=== PATIENT | male | born 1990 | race Caucasian/White ===

== ENCOUNTER 2018-08-14 20:20 | Inpatient (IN) | payer OTHER ==
[2018-08-14 21:45] LABS: ADD MAN DIFF? NO
[2018-08-14] MEDS: NYSTATIN SUSP 5 ML CUP PO (21:46)
[2018-08-14 21:50] LABS: WHITE BLOOD COUNT 7.3 10^3/ul (4.8-10.8)
[2018-08-14 21:50] LABS: BASOPHIL # 0.1 10^3/ul (0.0-0.1); BASOPHILS % 1.1 % (0.0-2.0); EOSINOPHILS # 0.1 10^3/ul (0.0-0.5); HEMATOCRIT 44.6 % (42.0-52.0); LYMPHOCYTES # 1.9 10^3/ul (0.8-2.9); LYMPHOCYTES % 26.2 % (15.0-51.0); MEAN CORPUSCULAR HEMOGLOBIN 30.6 pg (29.0-33.0); MEAN CORPUSCULAR HGB CONC 33.6 g/dl (32.0-37.0); MEAN PLATELET VOLUME 10.3 fl (7.4-10.4); MONOCYTE # 0.4 10^3/ul (0.3-0.9); NEUTROPHIL # 4.8 10^3/ul (1.6-7.5); NEUTROPHILS % 65.3 % (39.0-77.0); PLATELET COUNT 202 10^3/UL (140-415); RED CELL DISTRIBUTION WIDTH 13.1 % (11.5-14.5)
[2018-08-14 22:07] LABS: ALANINE AMINOTRANSFERASE 60 IU/L (13-69); ALBUMIN 3.6 g/dl (3.3-4.9); ALBUMIN/GLOBULIN RATIO 0.97; ALKALINE PHOSPHATASE 102 IU/L (42-121); ANION GAP 4 (5-13); ASPARTATE AMINO TRANSFERASE 43 IU/L (15-46); BILIRUBIN,INDIRECT 0.6 mg/dl (0-1.1); BILIRUBIN,TOTAL 0.6 mg/dl (0.2-1.3); BLOOD UREA NITROGEN 12 mg/dl (7-20); CALCIUM 9.8 mg/dl (8.4-10.2); CARBON DIOXIDE 38 mmol/L (21-31); CHLORIDE 100 mmol/L (97-110); CREATININE 0.74 mg/dl (0.61-1.24); GLUCOSE 83 mg/dl (70-220); LIPASE 49 U/L (23-300); POTASSIUM 4.3 mmol/L (3.5-5.1); SODIUM 142 mmol/L (135-144); TOTAL PROTEIN 7.3 g/dl (6.1-8.1)
[2018-08-14] MEDS: SOD CHLORIDE 0.9% 1,000 ML IV ×2 (22:20→23:49)
[2018-08-14] MEDS: LORAZEPAM 2 MG INJ IV (22:21)
[2018-08-14] MEDS: HEPARIN SODIUM 5,000 UNIT/ML VIAL SC (22:30)
[2018-08-14] MEDS ORDERED: NACL 0.9% 3 ML SYG IV (22:30)
[2018-08-14] MEDS ORDERED: ACETAMINOPHEN 650 MG SUPP PR (22:30)
[2018-08-14] MEDS ORDERED: ONDANSETRON 4 MG INJ IV (22:30)
[2018-08-14] MEDS ORDERED: LORAZEPAM 2 MG INJ IV (22:30)
[2018-08-15 00:53] LABS: INR 1.04; PROTIME 13.7 Sec (11.9-14.9); PT RATIO 1.1
[2018-08-15 00:54] LABS: PARTIAL THROMBOPLASTIN TIME 33.5 Sec (23.0-35.0)
[2018-08-15] MEDS: HALOPERIDOL 5 MG INJ IM (01:00)
[2018-08-15] MEDS ORDERED: HEPARIN 5,000 UNIT/0.5 ML VIAL ×3 (04:57→20:51)
[2018-08-15] MEDS: HEPARIN SODIUM 5,000 UNIT/ML VIAL SC ×3 (05:21→21:49)
[2018-08-15 06:45] LABS: ADD MAN DIFF? NO
[2018-08-15 06:52] LABS: WHITE BLOOD COUNT 6.6 10^3/ul (4.8-10.8)
[2018-08-15 06:52] LABS: BASOPHIL # 0.1 10^3/ul (0.0-0.1); BASOPHILS % 0.9 % (0.0-2.0); EOSINOPHILS # 0.1 10^3/ul (0.0-0.5); EOSINOPHILS % 1.7 % (0.0-7.0); HEMATOCRIT 42.3 % (42.0-52.0); HEMOGLOBIN 13.8 g/dl (14.0-18.0); LYMPHOCYTES # 1.9 10^3/ul (0.8-2.9); LYMPHOCYTES % 29.1 % (15.0-51.0); MEAN CORPUSCULAR HEMOGLOBIN 30.3 pg (29.0-33.0); MEAN CORPUSCULAR HGB CONC 32.6 g/dl (32.0-37.0); MEAN PLATELET VOLUME 10.8 fl (7.4-10.4); MONOCYTE # 0.4 10^3/ul (0.3-0.9); MONOCYTES % 5.9 % (0.0-11.0); NEUTROPHIL # 4.1 10^3/ul (1.6-7.5); NEUTROPHILS % 62.1 % (39.0-77.0); PLATELET COUNT 191 10^3/UL (140-415); RED BLOOD COUNT 4.55 10^6/ul (4.70-6.10); RED CELL DISTRIBUTION WIDTH 13.2 % (11.5-14.5)
[2018-08-15 07:29] LABS: ALANINE AMINOTRANSFERASE 53 IU/L (13-69); ALBUMIN/GLOBULIN RATIO 0.96; ALKALINE PHOSPHATASE 86 IU/L (42-121); ANION GAP 7 (5-13); ASPARTATE AMINO TRANSFERASE 38 IU/L (15-46); BILIRUBIN,INDIRECT 0.6 mg/dl (0-1.1); BILIRUBIN,TOTAL 0.6 mg/dl (0.2-1.3); BLOOD UREA NITROGEN 12 mg/dl (7-20); CALCIUM 9.2 mg/dl (8.4-10.2); CARBON DIOXIDE 34 mmol/L (21-31); CHLORIDE 102 mmol/L (97-110); CREATININE 0.74 mg/dl (0.61-1.24); GLUCOSE 86 mg/dl (70-220); MAGNESIUM 1.9 mg/dl (1.7-2.5); SODIUM 143 mmol/L (135-144); TOTAL PROTEIN 6.1 g/dl (6.1-8.1)
[2018-08-15 07:43] LABS: HEMOGLOBIN A1C 4.8 % (0-5.9)
[2018-08-15] MEDS: SOD CHLORIDE 0.9% 1,000 ML IV ×2 (08:15→20:06)
[2018-08-16] MEDS ORDERED: HEPARIN 5,000 UNIT/0.5 ML VIAL ×3 (04:23→20:59)
[2018-08-16] MEDS: SOD CHLORIDE 0.9% 1,000 ML IV ×4 (04:53→22:56)
[2018-08-16 05:32] LABS: ADD MAN DIFF? NO
[2018-08-16] MEDS: HEPARIN SODIUM 5,000 UNIT/ML VIAL SC ×3 (05:49→21:09)
[2018-08-16 06:02] LABS: MAGNESIUM 1.7 mg/dl (1.7-2.5)
[2018-08-16 06:04] LABS: ANION GAP 11 (5-13); BLOOD UREA NITROGEN 12 mg/dl (7-20); CALCIUM 9.3 mg/dl (8.4-10.2); CARBON DIOXIDE 28 mmol/L (21-31); CHLORIDE 104 mmol/L (97-110); CREATININE 0.64 mg/dl (0.61-1.24); GLUCOSE 76 mg/dl (70-220); POTASSIUM 3.7 mmol/L (3.5-5.1); SODIUM 143 mmol/L (135-144)
[2018-08-16] MEDS: LORAZEPAM 2 MG INJ IV ×2 (09:21→21:03)
[2018-08-16 09:37] LABS: BASOPHIL # 0.1 10^3/ul (0.0-0.1); BASOPHILS % 1.7 % (0.0-2.0); EOSINOPHILS # 0.1 10^3/ul (0.0-0.5); EOSINOPHILS % 1.2 % (0.0-7.0); HEMATOCRIT 40.4 % (42.0-52.0); HEMOGLOBIN 13.7 g/dl (14.0-18.0); LYMPHOCYTES # 1.5 10^3/ul (0.8-2.9); LYMPHOCYTES % 25.5 % (15.0-51.0); MEAN CORPUSCULAR HEMOGLOBIN 30.5 pg (29.0-33.0); MEAN CORPUSCULAR HGB CONC 33.9 g/dl (32.0-37.0); MONOCYTE # 0.4 10^3/ul (0.3-0.9); MONOCYTES % 6.8 % (0.0-11.0); NEUTROPHIL # 3.8 10^3/ul (1.6-7.5); NEUTROPHILS % 64.6 % (39.0-77.0); PLATELET COUNT 194 10^3/UL (140-415); RED BLOOD COUNT 4.49 10^6/ul (4.70-6.10); RED CELL DISTRIBUTION WIDTH 13.3 % (11.5-14.5)
[2018-08-16 09:37] LABS: WHITE BLOOD COUNT 5.9 10^3/ul (4.8-10.8)
[2018-08-17] MEDS: SOD CHLORIDE 0.9% 1,000 ML IV ×3 (00:15→20:10)
[2018-08-17] MEDS ORDERED: HEPARIN 5,000 UNIT/0.5 ML VIAL ×3 (06:27→20:06)
[2018-08-17] MEDS: HEPARIN SODIUM 5,000 UNIT/ML VIAL SC ×3 (06:56→21:09)
[2018-08-17] MEDS: LORAZEPAM 2 MG INJ IV ×2 (10:52→17:15)
[2018-08-18] MEDS ORDERED: HEPARIN 5,000 UNIT/0.5 ML VIAL ×3 (05:06→20:13)
[2018-08-18] MEDS: SOD CHLORIDE 0.9% 1,000 ML IV ×2 (06:01→17:12)
[2018-08-18] MEDS: HEPARIN SODIUM 5,000 UNIT/ML VIAL SC ×3 (06:02→21:08)
[2018-08-18] MEDS ORDERED: CEFAZOLIN 2 GM/50 ML (PMX) 50 ML IVPB (11:16)
[2018-08-18] MEDS ORDERED: PROPOFOL 40 ML (11:46)
[2018-08-18] MEDS ORDERED: MIDAZOLAM 1 MG/ML 2 ML INJ (11:47)
[2018-08-18] MEDS: FAMOTIDINE 20 MG INJ IV (15:34)
[2018-08-18] MEDS: LORAZEPAM 2 MG INJ IV (21:08)
[2018-08-19] MEDS ORDERED: HEPARIN 5,000 UNIT/0.5 ML VIAL ×2 (05:08→13:03)
[2018-08-19 05:38] LABS: ADD MAN DIFF? NO
[2018-08-19] MEDS: HEPARIN SODIUM 5,000 UNIT/ML VIAL SC ×2 (05:41→13:48)
[2018-08-19 05:45] LABS: BASOPHIL # 0.1 10^3/ul (0.0-0.1); BASOPHILS % 0.5 % (0.0-2.0); EOSINOPHILS # 0.1 10^3/ul (0.0-0.5); EOSINOPHILS % 0.7 % (0.0-7.0); HEMOGLOBIN 13.4 g/dl (14.0-18.0); LYMPHOCYTES # 2.2 10^3/ul (0.8-2.9); LYMPHOCYTES % 16.6 % (15.0-51.0); MEAN CORPUSCULAR HEMOGLOBIN 30.1 pg (29.0-33.0); MEAN CORPUSCULAR HGB CONC 34.4 g/dl (32.0-37.0); MEAN CORPUSCULAR VOLUME 87.6 fl (82.0-101.0); MEAN PLATELET VOLUME 10.5 fl (7.4-10.4); MONOCYTE # 1.1 10^3/ul (0.3-0.9); MONOCYTES % 8.1 % (0.0-11.0); NEUTROPHIL # 9.6 10^3/ul (1.6-7.5); NEUTROPHILS % 73.7 % (39.0-77.0); PLATELET COUNT 223 10^3/UL (140-415); RED BLOOD COUNT 4.45 10^6/ul (4.70-6.10); RED CELL DISTRIBUTION WIDTH 13.2 % (11.5-14.5)
[2018-08-19 06:17] LABS: ALANINE AMINOTRANSFERASE 71 IU/L (13-69); ALBUMIN 3.6 g/dl (3.3-4.9); ALKALINE PHOSPHATASE 92 IU/L (42-121); ANION GAP 11 (5-13); ASPARTATE AMINO TRANSFERASE 42 IU/L (15-46); BILIRUBIN,INDIRECT 0.9 mg/dl (0-1.1); BILIRUBIN,TOTAL 0.9 mg/dl (0.2-1.3); BLOOD UREA NITROGEN 7 mg/dl (7-20); CALCIUM 8.6 mg/dl (8.4-10.2); CARBON DIOXIDE 27 mmol/L (21-31); CHLORIDE 100 mmol/L (97-110); CREATININE 0.64 mg/dl (0.61-1.24); GLUCOSE 79 mg/dl (70-220); MAGNESIUM 1.8 mg/dl (1.7-2.5); PHOSPHORUS 4.5 mg/dl (2.5-4.9); POTASSIUM 3.3 mmol/L (3.5-5.1); SODIUM 138 mmol/L (135-144); TOTAL PROTEIN 6.6 g/dl (6.1-8.1)
[2018-08-19] MEDS: FAMOTIDINE 20 MG INJ IV (09:11)
[2018-08-19] MEDS ORDERED: FAMOTIDINE 20 MG TAB GTB (21:00)
== END 2018-08-19 16:00 | disposition home or self-care (01) | DRG 394 ==
LOC: PP2 08-15 00:32 → E/R 20:20 → PP2 23:57
PROC: 0DH63UZ Insertion of Feeding Device into Stomach, Percutaneous Approach (ICD-10-PCS; principal; 2018-08-18 10:50)
DX: K94.23 Gastrostomy malfunction (principal); E46 Unspecified protein-calorie malnutrition; Z68.22 Body mass index [BMI] 22.0-22.9, adult; R13.10 Dysphagia, unspecified; R62.7 Adult failure to thrive; E86.0 Dehydration; R53.81 Other malaise; Z87.820 Personal history of traumatic brain injury; R00.0 Tachycardia, unspecified
CPT/HCPCS: 36415; 71045; 74018; 80048; 80053; 83036; 83690; 83735; 84100; 84443; 85025; 85610; 85730; 90686; 97110; 97116; 97161; 97165; 97530; 99285-25